=== PATIENT | male | born 1990 | race Caucasian/White ===

== ENCOUNTER 2017-10-05 01:04 | Emergency (ER) | payer BC ==
[~2017-10-05] VITALS: Ht 172.7 cm; Wt 86.2 kg
[2017-10-05] MEDS: TETANUS/DIPHTHERIA TOX ADULT 0.5 ML SYR IM ONE (01:27)
[2017-10-05] MEDS ORDERED: TETANUS/DIPHTHERIA TOX ADULT 0.5 ML SYR ONE (01:31)
[2017-10-06] MEDS ORDERED: SULFAMETHOXAZO1 EAC1 PO (12:22)
[2017-10-06] MEDS ORDERED: LEVAQUIN500 MG PO (12:22)
[2017-10-06] MEDS ORDERED: TYLENOL WITH C1 EACH PO (12:22)
== END 2017-10-05 01:31 | disposition home or self-care (01) ==
LOC: ER 01:04
DX: L05.91 Pilonidal cyst without abscess (principal); Z23 Encounter for immunization
CPT/HCPCS: 90471; 90714; 99282

== ENCOUNTER → 2017-10-07 | Day surgery (SDC) | payer BC ==
[2017-10-06 12:22] LABS: BASOPHILS % 0.3 % (0.0-1.0); EOSINOPHILS # (AUTO) 0.1 (0.0-0.4); HEMATOCRIT 39.6 % (38.2-49.6); HEMOGLOBIN 13.1 g/dL (14.0-18.0); LYMPHOCYTES # (AUTO) 0.8 (1.0-3.2); LYMPHOCYTES % 7.2 % (18.0-39.1); MEAN CORPUSCULAR HEMOGLOBIN 27.5 pg (28-32); MEAN CORPUSCULAR HGB CONC 33.1 g/dL (31-35); MEAN CORPUSCULAR VOLUME 83.2 fL (81-99); MONOCYTES % 8.4 % (4.4-11.3); NEUTROPHILS # (AUTO) 9.6 (2.1-6.9); NEUTROPHILS % 82.8 % (38.7-80.0); PLATELET COUNT 340 x10e3/uL (140-360); RED BLOOD COUNT 4.76 x10e6/uL (4.3-5.7); RED CELL DISTRIBUTION WIDTH 13.2 % (11.7-14.4)
[~2017-10-07] MED LIST: BUPIVACAINE 0.25%/EPI 30ML SDV INJ ONE; DEXAMETHASONE SOD PHOS INJ 4 MG/ML VIAL ONE; FENTANYL CITRATE/PF 100MCG/2 ML INJ ONE; KETOROLAC TROMETHAMINE 30 MG/ML VIAL ONE; LEVAQUIN500 MG PO; LIDOCAINE HCL 1% LOCAL INJ 20 ML VIAL ONE; LIDOCAINE HCL 2% LOCAL INJ 5 ML SDV VIAL INJ ONE; MIDAZOLAM HCL 2 MG/2 ML VIAL ONE; ONDANSETRON HCL INJ 2 MG/ML VIAL ONE; PROPOFOL IV EMULSION 10 MG/ML 20 ML VIAL ONE; SEVOFLURANE INHAL SOLN 250 ML PEN BTL ONE; SULFAMETHOXAZO1 EAC1 PO; TYLENOL WITH C1 EACH PO
--- OUTSIDE RECORDS SUMMARY | 2017-10-07 09:20 | XMS REPORT | Continuity of Care Document ---
Author Author [facility] Organization [facility] Address [address] [place] [address] Phone Unavailable Care Team Providers Care Finance Assistant Name Role Phone NO, PCP PCP Unavailable Insurance Providers Guarantor Randolph Dean Address [address] [place] [address] Email NONE Payer [facility] Policy Number [id number] Subscriber's Name Randolph Dean Relationship 18 Self / Same As Patient Advance Directives Directive Response Recorded Date/Time Does the patient have an advance directive? No 10/05/17 1:12am If yes, is advance directive on file with [facility]? No 10/05/17 1:12am If not on file with [facility] will patient provide a copy? Yes 10/05/17 1:12am Do you have a Directive to Physician? No 10/05/17 1:12am Do you have a Medical Power of Power Checker? No 10/05/17 1:12am Do you have an out of hospital Do Not Resuscitate Order? No 10/05/17 1:12am Do you have any special needs we should be aware of? No 10/05/17 1:12am Do you have a support person here with you today? Yes 10/05/17 1:12am Did patient receive Notice of Privacy Practices? Yes 10/05/17 1:12am Did patient receive patient rights and responsibilities? Yes 10/05/17 1:12am Problems No problem information available. Medications No medication information available. Social History Smoking Status Start Date Stop Date Never Smoker Hospital Discharge Instructions No hospital discharge instruction information available. Plan of Care Discharge Date 10/05/17 1:31am Disposition HOME, SELF-CARE Condition at Discharge Stable Instructions/Education Provided Pilonidal Disease Forms Provided Work/School Excuse Prescriptions See Medication Section Referrals MOODY LAW MD Address: [address] [place] [address] [place] [id number] Additional Instructions/Education FOLLOW UP WITH PRIMARY CARE PHYSICIAN FOLLOW UP WITH GENERAL SURGEON Functional Status No functional status information available. Allergies, Adverse Reactions, Alerts No known allergies. Immunizations No immunization information available. Vital Signs Acute Vital Signs Vital Response Date/Time Height 5 ft 8 in 10/05/2017 1:10am Weight 190 lb 10/05/2017 1:10am Body Mass Index 28.9 kg/m^2 10/05/2017 1:10am Results No relevant diagnostic test, laboratory data and/or discharge summary information available. Procedures No procedure information available. Encounters Encounter Location Arrival/Admit Date Discharge/Depart Date Attending Provider Departed Emergency Room [facility] 10/05/17 1:04am 1:31am KURT BOCANEGRA MD
--- NOTE | 2017-10-07 13:28 | Operative Report ---
DATE OF PROCEDURE: October 07, 2017 PREOPERATIVE DIAGNOSIS: Pilonidal abscess. POSTOPERATIVE DIAGNOSIS: Pilonidal abscess. OPERATION PERFORMED: Incision and drainage of pilonidal abscess. ANESTHESIA: General. COMPLICATIONS: None. ESTIMATED BLOOD LOSS: Minimal. DESCRIPTION OF PROCEDURE: With the patient lying in bed in the lateral position under good general anesthesia, the sacral and perineal areas were prepped with Betadine solution and draped in the usual manner. There was a large bulging abscess in the sacral area at the midline, representing an infected pilonidal cyst. A plug of skin was then removed from the area at the spot that it was bulging the most, and immediately some purulent material was obtained, which was aspirated. The overlying skin was removed. After this was done, all of the pus was aspirated. All of the necrotic tissue was then removed from the subcutaneous tissue. Hemostasis was ascertained. The wound was then copiously irrigated with dilute Betadine solution and was then packed with half-inch iodoform gauze. A dressing was applied. The sponge, lap and needle count was correct. The patient tolerated the procedure well and returned to the recovery room in stable condition. Job#: [id number] EV
== END | disposition home or self-care (01) ==
LOC: OR 09:18
PROVIDERS: ATTEND Surgery
DX: L05.01 Pilonidal cyst with abscess (principal); R06.83 Snoring; Z01.812 Encounter for preprocedural laboratory examination
CPT/HCPCS: 10080; 36415; 85025; J1100; J1885; J2001; J2250; J2405

== ENCOUNTER 2017-11-01 10:20 | Emergency (ER) | payer BC ==
[~2017-11-01] VITALS: Ht 172.7 cm; Wt 86.2 kg
[~2017-11-01 10:20] MED LIST changes: -BUPIVACAINE 0.25%/EPI 30ML SDV INJ ONE; -DEXAMETHASONE SOD PHOS INJ 4 MG/ML VIAL ONE; -FENTANYL CITRATE/PF 100MCG/2 ML INJ ONE; -KETOROLAC TROMETHAMINE 30 MG/ML VIAL ONE; -LIDOCAINE HCL 1% LOCAL INJ 20 ML VIAL ONE; -LIDOCAINE HCL 2% LOCAL INJ 5 ML SDV VIAL INJ ONE; -MIDAZOLAM HCL 2 MG/2 ML VIAL ONE; -ONDANSETRON HCL INJ 2 MG/ML VIAL ONE; -PROPOFOL IV EMULSION 10 MG/ML 20 ML VIAL ONE; -SEVOFLURANE INHAL SOLN 250 ML PEN BTL ONE
[2017-11-01] MEDS ORDERED: IBUPROFEN 600 MG TAB PO STA (10:29)
[2017-11-01 10:51] LABS: STREPTOCOCCUS GRP A ANTIGEN NEGATIVE (NEGATIVE)
[2017-11-01 11:02] LABS: INFLUENZAE A&B ANTIGEN (RAPID) POSITIVE FLU A (NEGATIVE)
--- NOTE | 2017-11-01 11:07 | Diagnostic Imaging Report ---
Two view chest x-ray INDICATION: Headache, fever, cough COMPARISON: None. FINDINGS: The cardiomediastinal silhouette is normal. There is no evidence of hilar lymphadenopathy. The pulmonary vascular markings are normal. The lungs are clear. Evaluation of the osseous structures demonstrates no focal abnormality. IMPRESSION: No active cardiopulmonary disease. Signed by: Dr. Anh Garvey MD on 11/01/2017 11:03 AM
[2017-11-01 11:33] VITALS: BP 128/68
[2018-01-14] MEDS ORDERED: MULTI-VITAMIN1 EACH PO (10:45)
== END 2017-11-01 11:51 | disposition home or self-care (01) ==
LOC: ER 10:20
DX: R50.9 Fever, unspecified (principal); R05 Cough; J11.1 Influenza due to unidentified influenza virus with other respiratory manifestations; J31.0 Chronic rhinitis
CPT/HCPCS: 71046; 83518; 87070; 87400; 99283

== ENCOUNTER → 2017-11-13 | Day surgery (SDC) | payer BC ==
[~2017-11-13] MED LIST changes: +BUPIVACAINE 0.25%/EPI 30ML SDV INJ ONE; +DEXAMETHASONE SOD PHOS INJ 4 MG/ML VIAL ONE; +FENTANYL CITRATE/PF 100MCG/2 ML INJ ONE; +KETOROLAC TROMETHAMINE 30 MG/ML VIAL ONE; +LIDOCAINE HCL 2% LOCAL INJ 5 ML SDV VIAL INJ ONE; +MIDAZOLAM HCL 2 MG/2 ML VIAL ONE; +ONDANSETRON HCL INJ 2 MG/ML VIAL ONE; +PROPOFOL IV EMULSION 10 MG/ML 20 ML VIAL ONE; +ROCURONIUM BROMIDE 10 MG/ML 5ML VIAL ONE; +SEVOFLURANE INHAL SOLN 250 ML PEN BTL ONE
--- OUTSIDE RECORDS SUMMARY | 2017-11-13 08:42 | XMS REPORT | Continuity of Care Document ---
Author Author [facility] Organization [facility] Address [address] [place] [address] Phone Unavailable Care Team Providers Care Homogenizer Operator Name Role Phone IMTIAZ SOUTH DO PCP Insurance Providers Guarantor Randolph Dean Address [address] [place] [address] Email [email or web address] Payer [facility] Policy Number [id number] Subscriber's Name Randolph Dean Relationship 18 Self / Same As Patient Group Number [id number] Group Name [employer] Effective Date 17 Advance Directives Directive Response Recorded Date/Time Does the patient have an advance directive? No 10/05/17 1:12am If yes, is advance directive on file with [facility]? No 10/05/17 1:12am If not on file with [facility] will patient provide a copy? No 10/06/17 11:59am Do you have a Directive to Physician? No 11/01/17 10:36am Do you have a Medical Power of Process Mechanic? No 11/01/17 10:36am Do you have an out of hospital Do Not Resuscitate Order? No 11/01/17 10:36am Do you have any special needs we should be aware of? No 11/01/17 10:36am Do you have a support person here with you today? Yes 11/01/17 10:36am Did patient receive Notice of Privacy Practices? Yes 11/01/17 10:36am Did patient receive patient rights and responsibilities? Yes 11/01/17 10:36am Problems No problem information available. Medications Current Home Medications Medication Dose Units Route Directions Days Qty Instructions Start Date Acetaminophen With Codeine (Tylenol With Codeine #3 Tablet) 1 Each Tablet 300 Mg Oral As Needed Levofloxacin (Levaquin) 500 Mg Tablet 500 Mg Oral Daily Sulfamethoxazole/Trimethoprim (Sulfamethoxazole-Tmp Ds Tablet) 1 Each Tablet Oral Twice A Day Social History Smoking Status Start Date Stop Date Never Smoker Hospital Discharge Instructions No hospital discharge instruction information available. Plan of Care Discharge Date 11/01/17 11:51am Disposition HOME, SELF-CARE Condition at Discharge Stable Instructions/Education Provided Flu - Adult Forms Provided Work/School Excuse Prescriptions See Medication Section Referrals IMTIAZ SOUTH DO Address: [address] [place] [address] Additional Instructions/Education FOLLOW UP WITH PRIMARY CARE DOCTOR THIS WEEK. DRINK PLENTY OF FLUIDS TO MAINTAIN HYDRATION. TAKE MEDICATIONS PRESCRIBED. Functional Status No functional status information available. Allergies, Adverse Reactions, Alerts No known allergies. Immunizations No immunization information available. Vital Signs Acute Vital Signs Vital Response Date/Time Temperature (Fahrenheit) 99.8 degrees F (97.6 - 99.5) 11/01/2017 11:33am Pulse Pulse Rate (adult) 106 bpm (60 - 90) 11/01/2017 11:33am Respiratory Rate 18 bpm (12 - 24) 11/01/2017 11:33am Blood Pressure 128/68 mm Hg 11/01/2017 11:33am Height 5 ft 8 in 11/01/2017 10:27am Weight 190 lb 11/01/2017 10:27am Body Mass Index 28.9 kg/m^2 11/01/2017 10:27am Results Laboratory Results Test Name Result Units Flags Reference Collection Date/Time Result Date/ Time Comments White Blood Count 11.56 x10e3/uL H 4.8-10.8 10/06/2017 12:20pm 2017 12:23pm Red Blood Count 4.76 x10e6/uL 4.3-5.7 10/06/2017 12:20pm 10/06/2017 12: 23pm Hemoglobin 13.1 g/dL L 14.0-18.0 10/06/2017 12:20pm 10/06/2017 12:23pm Hematocrit 39.6 % 38.2-49.6 10/06/2017 12:20pm 10/06/2017 12:23pm Mean Corpuscular Volume 83.2 fL 81-99 10/06/2017 12:20pm 10/06/2017 12: 23pm Mean Corpuscular Hemoglobin 27.5 pg L 28-32 10/06/2017 12:20pm 2017 12:23pm Mean Corpuscular Hemoglobin Concent 33.1 g/dL 31-35 10/06/2017 12:20pm 10/06/2017 12:23pm Red Cell Distribution Width 13.2 % 11.7-14.4 10/06/2017 12:20pm 2017 12:23pm Platelet Count 340 x10e3/uL 140-360 10/06/2017 12:20pm 10/06/2017 12: 23pm Neutrophils (%) (Auto) 82.8 % H 38.7-80.0 10/06/2017 12:20pm 10/06/2017 12:23pm Lymphocytes (%) (Auto) 7.2 % L 18.0-39.1 10/06/2017 12:20pm 10/06/2017 12:23pm Monocytes (%) (Auto) 8.4 % 4.4-11.3 10/06/2017 12:20pm 10/06/2017 12: 23pm Eosinophils (%) (Auto) 1.0 % 0.0-6.0 10/06/2017 12:20pm 10/06/2017 12: 23pm Basophils (%) (Auto) 0.3 % 0.0-1.0 10/06/2017 12:20pm 10/06/2017 12: 23pm IM GRANULOCYTES % 0.3 % 0.0-1.0 10/06/2017 12:20pm 10/06/2017 12:23pm Neutrophils # (Auto) 9.6 H 2.1-6.9 10/06/2017 12:20pm 10/06/2017 12: 23pm Lymphocytes # (Auto) 0.8 L 1.0-3.2 10/06/2017 12:20pm 10/06/2017 12: 23pm Monocytes # (Auto) 1.0 H 0.2-0.8 10/06/2017 12:20pm 10/06/2017 12: 23pm Eosinophils # (Auto) 0.1 0.0-0.4 10/06/2017 12:20pm 10/06/2017 12: 23pm Basophils # (Auto) 0.0 0.0-0.1 10/06/2017 12:20pm 10/06/2017 12:23pm Absolute Immature Granulocyte (auto 0.04 x10e3/uL 0-0.1 10/06/2017 12: 20pm 10/06/2017 12:23pm Influenza Virus Types A,B Antigen POSITIVE FLU A H NEGATIVE 11/01/2017 10:39am 11/01/2017 11:02am Results called to RUCHI CONTRERAS at 1101 on by JASMINE WHARTON. RB OK. Results LFT MSG TO [facility] in infection control at 1101 on 11/01/17 by JASMINE WHARTON. Group A Streptococcus Screen NEGATIVE NEGATIVE 11/01/2017 10:39am 10:51am Procedures Procedure Status Date Provider(s) DRAINAGE OF PILONIDAL CYST Completed 10/07/17 MOODY LAW MD X-ray of chest, two views Active 11/01/17 YOSEF WAITE MD Encounters Encounter Location Arrival/Admit Date Discharge/Depart Date Attending Provider Departed Emergency Room [facility] 11/01/17 10:20am 11/01 11:51am YOSEF WAITE MD Registered Surgical Day Care [facility] 10/07/17 9:18am MOODY LAW MD Departed Emergency Room [facility] 10/05/17 1:04am 1:31am KURT BOCANEGRA MD
--- OUTSIDE RECORDS SUMMARY | 2017-11-13 08:42 | XMS REPORT ---
Author Author [facility] Address Unknown Phone Unavailable Care Team Providers Care Product Safety Lead Name Role Phone YOSEF WAITE Unavailable Unavailable Problems This patient has no known problems. Allergies, Adverse Reactions, Alerts This patient has no known allergies or adverse reactions. Medications This patient has no known medications. Results Test Description Test Time Test Comments Text Results Atomic Results Result Comments CHEST [address] [address] Patient Name: RANDOLPH DEAN MR #: [id number] : 1990 Age/Sex: 27/M Req #: [id number] Adm Physician: Ordered by: YOSEF WAITE MD Report #: [id number] Location: ER Room/Bed: Procedure: [id number] DX/CHEST 2 VIEWS Exam Date: 11/01/17 Exam Time : 1036 REPORT STATUS: Signed Two view chest x-ray INDICATION: Headache, fever, cough COMPARISON: None. FINDINGS: The cardiomediastinal silhouette is normal. There is no evidence of hilar lymphadenopathy. The pulmonary vascular markings are normal. The lungs are clear. Evaluation of the osseous structures demonstrates no focal abnormality. IMPRESSION: No active cardiopulmonary disease. Signed by: Dr. Sonya Garvye MD on 11/01/2017 11:03 AM Dictated By: SONYA GARVEY MD [id number] COPY TO: YOSEF WAITE MD
[2017-11-13 09:35] LABS: BASOPHILS % 0.5 % (0.0-1.0); EOSINOPHILS # (AUTO) 0.2 (0.0-0.4); EOSINOPHILS % 2.4 % (0.0-6.0); HEMATOCRIT 41.9 % (38.2-49.6); LYMPHOCYTES # (AUTO) 1.1 (1.0-3.2); LYMPHOCYTES % 13.6 % (18.0-39.1); MEAN CORPUSCULAR HEMOGLOBIN 27.6 pg (28-32); MEAN CORPUSCULAR HGB CONC 33.4 g/dL (31-35); MEAN CORPUSCULAR VOLUME 82.5 fL (81-99); MONOCYTES # (AUTO) 0.5 (0.2-0.8); MONOCYTES % 6.2 % (4.4-11.3); NEUTROPHILS # (AUTO) 6.2 (2.1-6.9); NEUTROPHILS % 76.9 % (38.7-80.0); PLATELET COUNT 573 x10e3/uL (140-360); RED BLOOD COUNT 5.08 x10e6/uL (4.3-5.7); RED CELL DISTRIBUTION WIDTH 13.4 % (11.7-14.4)
--- NOTE | 2017-11-13 13:48 | Operative Report ---
DATE OF PROCEDURE: November 13, 2017 PREOPERATIVE DIAGNOSIS: Pilonidal cyst and sinuses. POSTOPERATIVE DIAGNOSIS: Pilonidal cyst and sinuses. OPERATION PERFORMED: Excision of complex pilonidal cyst and sinuses with rotational gluteal flap closures. SKATING RINK MANAGER: GABRIELLA De. ANESTHESIA: General. COMPLICATIONS: None. ESTIMATED BLOOD LOSS: Minimal. DESCRIPTION OF PROCEDURE: With the patient lying in bed in the prone position under good general endotracheal anesthesia, the lumbosacral area and perineal area were prepped with Betadine solution and draped in the usual manner. An elliptical incision was made to include the midline pilonidal cyst with most of the area around it to include all of the sinuses. Incision was then deepened through the subcutaneous tissue all the way down to the sacral fascia and the cyst was taken off of the sacral fascia with out any difficulty. The specimen was then sent for pathological examination. Gluteal flaps were then developed by raising the fascia on both sides widely enough to be able to reapproximate the defect. Once this was done perfect hemostasis was ascertained. The fascia was then reapproximated at the midline using interrupted sutures of 2-0 Vicryl. The subcutaneous tissue was approximated with 2-0 Vicryl and the skin was closed with interrupted vertical mattress sutures of 2-0 and 3-0 silk. All layers were infiltrated on the way out with solution of 1/4 percent Marcaine and dressings were applied. The sponge, lap and needle count was correct. Patient tolerated the procedure well and returned to the recovery room in stable condition. Job#: [id number] IRMA
--- NOTE | 2017-11-13 14:07 | Discharge Summary ---
NO DICTATION, length 0 minutes 6 seconds. MOODY LAW MD Job#: [id number] EV
== END | disposition home or self-care (01) ==
LOC: OR 08:40
PROVIDERS: ATTEND Surgery
DX: L05.91 Pilonidal cyst without abscess (principal)
CPT/HCPCS: 11772; 36415; 85025; 88304; J1100; J1885; J2001; J2250; J2405

== ENCOUNTER → 2018-01-15 | Day surgery (SDC) | payer BC ==
[~2018-01-15] MED LIST changes: -BUPIVACAINE 0.25%/EPI 30ML SDV INJ ONE; -DEXAMETHASONE SOD PHOS INJ 4 MG/ML VIAL ONE; +HYOSCYAMINE SULFATE 0.5 MG/ML AMP ONE; -KETOROLAC TROMETHAMINE 30 MG/ML VIAL ONE; -LIDOCAINE HCL 2% LOCAL INJ 5 ML SDV VIAL INJ ONE; +MULTI-VITAMIN1 EACH PO; -ONDANSETRON HCL INJ 2 MG/ML VIAL ONE; -ROCURONIUM BROMIDE 10 MG/ML 5ML VIAL ONE; -SEVOFLURANE INHAL SOLN 250 ML PEN BTL ONE
[2018-01-15 14:37] LABS: WBC,FECAL (FECAL LACTOFERRIN) POSITIVE (NEGATIVE)
--- NOTE | 2018-01-15 15:02 | Operative Report ---
DATE OF PROCEDURE: January 15, 2018 REFERRING PHYSICIAN: Dr. Neel South PROCEDURE PERFORMED: Colonoscopy with biopsies. INDICATIONS FOR COLONOSCOPY: Lower abdominal pain, chronic diarrhea. MEDICATION: Patient was done under MAC. Please see anesthesiologist's note. PROCEDURE: With the patient in the left lateral decubitus position, the flexible fiberoptic Olympus colonoscope was inserted into the rectum with ease and advanced all the way to the cecum. The cecum overall appeared to be within normal limits. The ileocecal valve appeared inflamed. It was intubated, and the scope was advanced into the terminal ileum. Scattered ulcers were noted in the terminal ileum, and multiple biopsies were obtained. The scope was then withdrawn back into the colon. It was then withdrawn slowly. Mucosa overlying the ascending and the transverse as well as the descending appeared to be within normal limits. The sigmoid colon was diffusely ulcerated as well as the rectum, but in the rectum it was less pronounced. Biopsies were obtained. The scope was then retroflexed into the distal rectum, and small internal hemorrhoids were noted, none of which was actively bleeding. The scope was then straightened out. The scope was subsequently withdrawn after securing an adequate stool specimen that was sent for the appropriate stool studies. Patient tolerated the procedure well. IMPRESSION 1. Ulcerated terminal ileum, biopsies obtained. 2. Ulcerative proctosigmoiditis, biopsies obtained. 3. Internal hemorrhoids, none actively bleeding. PLAN: Follow up histology. Follow up stool studies. Check IBD panel, CRP and sed rate. Job#: [id number] cc:IMTIAZ SOUTH DO
[2018-01-16 13:53] LABS: C DIFFICILE TOXIN A&B AMP PROB NEGATIVE (NEGATIVE)
== END | disposition home or self-care (01) ==
LOC: OR 12:04
PROVIDERS: ATTEND Internal Medicine Gastroenterology
DX: K51.30 Ulcerative (chronic) rectosigmoiditis without complications (principal); K64.8 Other hemorrhoids; R19.5 Other fecal abnormalities; Z68.28 Body mass index [BMI] 28.0-28.9, adult
CPT/HCPCS: 36415; 45380; 83630; 83993; 85651; 86140; 86256; 86671; 87045; 87177; 87328; 87493; J1980; J2250; 45378